=== PATIENT | female | born 1970 | race Caucasian/White ===

== ENCOUNTER → 2017-03-10 | Day surgery (SDC) | payer OTHER ==
[~2017-03-10] MED LIST: BIOT1CAP3 PO; CYAN10005 PO; IV RINGERS,LACTATED 1000ML 1,000 ML IV SCH; LEVO50TA5 PO; LISI10TA2 PO; METO10TA PO; NORG1TAB39 PO; OMEP40CA5 PO; PROPOFOL 40 ML IV ONE
[2017-03-10 12:45] LABS: NEG OBC UR NEG; POS OBC UR POS
[2017-03-10 13:58] VITALS: BP 112/74
--- NOTE | 2017-03-14 16:49 | PATHOLOGY ---
PATHOLOGY REPORT * * * * * * * * FINAL DIAGNOSIS: Esophageal biopsies, distal esophagus: - Segments of hyperplastic squamous esophageal mucosa consistent with reflux esophagitis. COMMENT: Sections of the distal esophageal biopsy reveal segments of focally tangentially oriented hyperplastic squamous esophageal mucosa. The findings are consistent with reflux esophagitis. There is no evidence of Street's change, dysplasia, or malignancy. (JPM:; d/t: 03/14/17) REPORT ELECTRONICALLY SIGNED BY: Dane Mcghee M.D. DATE/TIME: 03/14/2017 16:47 * * * * * * * * GROSS PATHOLOGY: Received in formalin labeled "Chiquita Monte, distal esophagus, biopsy," are 4 segments of pack soft tissue measuring 0.6 cm in aggregate dimensions and ranging from 0.1 to 0.3 cm in maximum dimension. The specimen is submitted entirely in cassette A1. (SNA; 03/11/2017) INITIAL CPT CODE(S): A; 62267 Professional services performed by [facility] [place] [address] Technical services performed by [email or web address] at [address] [place] [address] [address], [place] [address]. SPECIMEN(S) RECEIVED: A.Distal esophageal biopsy CLINICAL HISTORY: GERD, rectal bleed PATIENT: CHIQIUTA MONTE /AGE: 1008/23/1970 (Age: 46) PATIENT #: [id number] ALT CASE #: SPECIMEN COLLECTION DATE: 03/10/2017 SPECIMEN RECEIVED DATE: 03/10/2017 [facility] - [address] [place] [address] - PHONE: [phone] * * * END OF REPORT * * *
== END | disposition home or self-care (01) ==
LOC: ENDOS 12:10
PROVIDERS: ATTEND Internal Medicine Gastroenterology
DX: K64.0 First degree hemorrhoids (principal); K21.0 Gastro-esophageal reflux disease with esophagitis; K29.50 Unspecified chronic gastritis without bleeding; E03.9 Hypothyroidism, unspecified; I10 Essential (primary) hypertension; Z80.3 Family history of malignant neoplasm of breast; Z82.49 Family history of ischemic heart disease and other diseases of the circulatory system; Z72.89 Other problems related to lifestyle; Z90.49 Acquired absence of other specified parts of digestive tract
CPT/HCPCS: 36415; 43239; 45378; 81025; 88305; 99156; J2704